=== PATIENT | male | born 1945 | race Caucasian/White ===

== ENCOUNTER 2020-02-12 15:38 | Emergency (ER) | payer OTHER ==
[~2020-02-12] VITALS: Ht 170.2 cm; Wt 79.4 kg
[2020-02-12 15:51] VITALS: BP 170/111
[2020-02-12] MEDS ORDERED: KETOROLAC TROMETH 60MG/2ML VIAL IM ONE (17:45)
== END 2020-02-12 18:02 | disposition home or self-care (01) ==
LOC: ER 15:38
DX: M50.10 Cervical disc disorder with radiculopathy, unspecified cervical region (principal); I10 Essential (primary) hypertension
CPT/HCPCS: 72040; 73030; 96372; 99284; J1885; 93005

== ENCOUNTER 2021-01-12 13:47 | Inpatient (IN) | payer OTHER ==
[~2021-01-12] VITALS: Ht 170.2 cm; Wt 74.1 kg
[2021-01-12] MEDS ORDERED: ASPirin 81 mg TAB PO ONE (14:45)
[2021-01-12 15:22] LABS: Basophils # (auto) 0.1 10 ^3/uL (0-0.2); Basophils % (auto) 1.1 % (0.0-2.0); Eosinophils # (auto) 0.5 10 ^3/uL (0-0.8); Eosinophils % (auto) 7.4 % (0.0-7.0); Hematocrit 47.2 % (41.0-53.0); Hemoglobin 16.3 g/dL (13.5-17.5); Lymphocytes # (auto) 1.5 10 ^3/uL (0.4-5.4); Lymphocytes % (auto) 22.2 % (10.0-50.0); Mean Corpuscular Hemoglobin 32.1 pg (28.0-32.0); Mean Corpuscular Hgb Conc. 34.6 g/dL (32.0-36.0); Mean Corpuscular Volume 92.9 fL (80.0-100.0); Monocytes # (auto) 0.7 10 ^3/uL (0-1.3); Monocytes % (auto) 10.7 % (0.0-12.0); Neutrophils % (auto) 58.6 % (37.0-80.0); Nucleated Red Blood Cells % 0.7 %; Red Blood Cells 5.09 10^6/uL (4.5-5.90); Red Cell Distribution Width 13.5 % (11.8-14.3); White Blood Cell 6.8 10^3/uL (4.4-10.8)
[2021-01-12 15:33] LABS: Albumin 4.3 g/dL (3.4-5.0); Calcium 9.8 mg/dL (8.5-10.1); Potassium 5.1 mmol/L (3.5-5.1)
[2021-01-12 15:39] LABS: BUN/Creatinine Ratio 16.8; Bilirubin, Total 0.7 mg/dL (0.2-1.0); Total Protein 8.3 g/dL (6.4-8.2)
[2021-01-12] MEDS ORDERED: HEPARIN 1,000 UNITS/ml 1ML VIAL IV ONE (16:15)
[2021-01-12] MEDS ORDERED: ONDANSETRON HCL 4 MG/2 ML VIAL IV ONE (16:15)
[2021-01-12] MEDS ORDERED: MORPHINE SULFATE 4 MG/ML SYR/VIAL IV ONE (16:15)
[2021-01-12] MEDS ORDERED: CLOPIDOGREL BISULFATE 75 MG TAB PO ONE (16:45)
[2021-01-12] MEDS ORDERED: HEPARIN SODIUM (PORCINE) 5000 UNITS/ML 1ML VIAL SC ONE (16:45)
[2021-01-12] MEDS ORDERED: NITROGLYCERIN 0.4 MG SL TAB SL ONE ×2 (16:45→16:49)
[2021-01-12] MEDS ORDERED: HEPARIN SODIUM (PORCINE) 5000 UNITS/ML 1ML VIAL ONE (16:59)
[2021-01-12] MEDS ORDERED: ONDANSETRON HCL 4 MG/2 ML VIAL IV PRN (17:00)
[2021-01-12] MEDS ORDERED: HYDROcodone-ACET 5/325MG TAB PO PRN (17:00)
[2021-01-12] MEDS ORDERED: NITROGLYCERIN 0.4MG/HR TOPICAL PATCH TD ONE (17:00)
[2021-01-12] MEDS ORDERED: hydrALAZINE HCL 20 MG/ML VL IV PRN (17:00)
[2021-01-12] MEDS ORDERED: MORPHINE SULFATE INJECTION 2 MG/ML SYRG IV PRN ×2 (17:00)
[2021-01-12 18:50] LABS: Basophils # (auto) 0.3 10 ^3/uL (0-0.2); Basophils % (auto) 4.1 % (0.0-2.0); Eosinophils # (auto) 0.5 10 ^3/uL (0-0.8); Eosinophils % (auto) 7.4 % (0.0-7.0); Hematocrit 43.4 % (41.0-53.0); Lymphocytes # (auto) 0.8 10 ^3/uL (0.4-5.4); Lymphocytes % (auto) 12.9 % (10.0-50.0); Mean Corpuscular Hemoglobin 32.2 pg (28.0-32.0); Mean Corpuscular Hgb Conc. 34.7 g/dL (32.0-36.0); Mean Corpuscular Volume 92.9 fL (80.0-100.0); Monocytes # (auto) 0.5 10 ^3/uL (0-1.3); Monocytes % (auto) 8.3 % (0.0-12.0); Neutrophils # (auto) 4.2 10 ^3/uL (1.6-8.6); Neutrophils % (auto) 67.3 % (37.0-80.0); Nucleated Red Blood Cells % 0.1 %; Red Blood Cells 4.67 10^6/uL (4.5-5.90); Red Cell Distribution Width 13.1 % (11.8-14.3); White Blood Cell 6.3 10^3/uL (4.4-10.8)
[2021-01-12 19:22] LABS: INR 1.17 (0.9-1.15)
[2021-01-12 19:23] LABS: Partial Thromboplastin Time > 139.0 sec (23.0-31.2)
[2021-01-12] MEDS: HEPARIN DRIP/D5W 100UNITS/ML 250 ML IV SCH ×2 (20:10→20:39)
[2021-01-12] MEDS ORDERED: HEPARIN SODIUM (PORCINE) 5000 UNITS/ML 1ML VIAL IV ONE (20:30)
[2021-01-12] MEDS: DOCUSATE SOD 100 MG CAP PO SCH (22:28)
[2021-01-12] MEDS: ATORVASTATIN 20 MG TAB PO SCH (22:28)
[2021-01-12] MEDS: METOPROLOL TARTRATE 25 MG TAB PO SCH (22:28)
[2021-01-12] MEDS: NITROGLYCERIN 0.4 MG SL TAB SL PRN ×2 (22:50→22:55)
[2021-01-12 23:03] LABS: Urine Bacteria FEW /hpf (None Seen); Urine Blood Negative /uL (Negative); Urine Mucus FEW (None Seen); Urine Specific Gravity 1.012 (1.001-1.035); Urine WBC 1 /hpf (0 - 3)
[2021-01-12] MEDS ORDERED: METOPROLOL SUCCINATE XL 50 MG TAB PO ONE ×2 (23:15)
[2021-01-12] MEDS ORDERED: TICAGRELOR 90 MG TAB PO ONE ×2 (23:15)
[2021-01-13 02:48] LABS: Basophils # (auto) 0.1 10 ^3/uL (0-0.2); Basophils % (auto) 0.7 % (0.0-2.0); Eosinophils # (auto) 0.1 10 ^3/uL (0-0.8); Eosinophils % (auto) 1.6 % (0.0-7.0); Hematocrit 42.7 % (41.0-53.0); Hemoglobin 14.9 g/dL (13.5-17.5); Lymphocytes # (auto) 1.2 10 ^3/uL (0.4-5.4); Lymphocytes % (auto) 15.1 % (10.0-50.0); Mean Corpuscular Hemoglobin 32.6 pg (28.0-32.0); Mean Corpuscular Volume 93.1 fL (80.0-100.0); Monocytes # (auto) 0.6 10 ^3/uL (0-1.3); Monocytes % (auto) 7.7 % (0.0-12.0); Neutrophils % (auto) 74.9 % (37.0-80.0); Nucleated Red Blood Cells % 0.1 %; Red Blood Cells 4.59 10^6/uL (4.5-5.90); Red Cell Distribution Width 13.4 % (11.8-14.3)
[2021-01-13 03:11] LABS: Calcium 9.7 mg/dL (8.5-10.1); Potassium 4.6 mmol/L (3.5-5.1)
[2021-01-13] MEDS: ASPirin-EC 81 mg tab PO SCH (10:00)
[2021-01-13] MEDS: FAMOTIDINE 20 MG TAB PO SCH (10:00)
[2021-01-13] MEDS: NITROGLYCERIN 0.4MG/HR TOPICAL PATCH TD SCH (10:00)
[2021-01-13] MEDS: DOCUSATE SOD 100 MG CAP PO SCH ×3 (10:00→22:42)
[2021-01-13] MEDS: TICAGRELOR 90 MG TAB PO SCH ×2 (10:00→22:26)
[2021-01-13] MEDS: METOPROLOL TARTRATE 25 MG TAB PO SCH ×2 (10:00→22:27)
[2021-01-13] MEDS ORDERED: TICAGRELOR 90 MG TAB PO SCH (10:00)
[2021-01-13] MEDS ORDERED: IODIXANOL 320MG/ML 100ML BTL IV ONE ×2 (10:36→11:10)
[2021-01-13] MEDS ORDERED: LIDOCAINE 2%HCL (LOCAL ANESTH.) INJ 20ML MDV ONE (10:36)
[2021-01-13] MEDS ORDERED: MIDAZOLAM HCL 2MG/2ML 2ml VIAL (1mg/ml) ONE ×2 (10:49→12:23)
[2021-01-13] MEDS ORDERED: ANGIOMAX 250 MG VIAL IV ONE (10:49)
[2021-01-13] MEDS ORDERED: fentaNYL CITRATE 100 MCG/2 ML VL ONE (10:49)
[2021-01-13] MEDS ORDERED: SODIUM CHL 0.9% 0 ML ONE (10:49)
[2021-01-13] MEDS ORDERED: VERAPAMIL 2.5MG/ML INJ 2ML VIAL IV ONE (10:49)
[2021-01-13] MEDS ORDERED: IOHEXOL 350 MG/ML 100ML IJ ONE (10:49)
[2021-01-13] MEDS ORDERED: HEPARIN SODIUM (PORCINE) 5000 UNITS/ML 1ML VIAL ONE ×2 (11:03→11:29)
[2021-01-13] MEDS ORDERED: ASPirin 325 MG TAB ONE (11:16)
[2021-01-13] MEDS ORDERED: TICAGRELOR 90 MG TAB ONE (11:16)
[2021-01-13 14:34] VITALS: BP 121/83
[2021-01-13] MEDS: ACETAMINOPHEN 500 MG TAB PO PRN ×2 (16:21→22:43)
[2021-01-13 17:00] VITALS: BP 134/81
[2021-01-13 22:00] VITALS: BP 106/70
[2021-01-13] MEDS: ATORVASTATIN 20 MG TAB PO SCH (22:26)
[2021-01-13] MEDS: SODIUM CHLORIDE 0.9% 1,000 ML IV SCH (22:27)
[2021-01-14 04:49] VITALS: BP 99/69
[2021-01-14 09:00] VITALS: BP 114/79
[2021-01-14] MEDS: TICAGRELOR 90 MG TAB PO SCH (09:58)
[2021-01-14] MEDS: ASPirin-EC 81 mg tab PO SCH (09:59)
[2021-01-14] MEDS: FAMOTIDINE 20 MG TAB PO SCH (09:59)
[2021-01-14] MEDS: NITROGLYCERIN 0.4MG/HR TOPICAL PATCH TD SCH (10:00)
[2021-01-14] MEDS: METOPROLOL TARTRATE 25 MG TAB PO SCH (10:00)
[2021-01-14] MEDS: DOCUSATE SOD 100 MG CAP PO SCH (10:06)
[2021-01-14] MEDS: SODIUM CHLORIDE 0.9% 1,000 ML IV SCH (10:07)
[2021-01-14 13:00] VITALS: BP 133/77
[2021-01-14 13:13] VITALS: BP 114/79
== END 2021-01-14 14:15 | disposition home or self-care (01) | DRG 249 ==
LOC: ER 13:57 → TELE 16:56 → TELE-EAST 01-13 14:29 → TELE-CENTR 01-13 23:35
PROVIDERS: ADMIT Nurse Practitioner Acute Care; ATTEND Internal Medicine Nephrology
PROC: B2111ZZ Fluoroscopy of Multiple Coronary Arteries using Low Osmolar Contrast (ICD-10-PCS; principal; 2021-01-13)
PROC: 02713EZ Dilation of Coronary Artery, Two Arteries with Two Intraluminal Devices, Percutaneous Approach (ICD-10-PCS; 2021-01-13)
PROC: B2151ZZ Fluoroscopy of Left Heart using Low Osmolar Contrast (ICD-10-PCS; 2021-01-13)
PROC: 4A023N7 Measurement of Cardiac Sampling and Pressure, Left Heart, Percutaneous Approach (ICD-10-PCS; 2021-01-13)
DX: I21.4 Non-ST elevation (NSTEMI) myocardial infarction (principal); I10 Essential (primary) hypertension; E78.5 Hyperlipidemia, unspecified; Z20.822 Contact with and (suspected) exposure to COVID-19; I25.110 Atherosclerotic heart disease of native coronary artery with unstable angina pectoris; I70.0 Atherosclerosis of aorta; Z87.891 Personal history of nicotine dependence
CPT/HCPCS: 36415; 71046; 80048; 80053; 81001; 82565; 83880; 84484; 85025; 85610; 85730; 86141; 87426; 92928; 93005; 93306; 93458; 96365; 96375; 96376; 99152; 99153; 99291; C1874; C1887; G0378; J2250; J2405; Q9967